=== PATIENT | female | born 1950 | race American Indian/Alaskan Native ===

== ENCOUNTER 2021-10-26 23:55 | Emergency (ER) | payer SELFPAY ==
[~2021-10-26 23:55] MED LIST: EPINEPHrine 1 MG/10 ML SYRINGE ONE; SODIUM BICARB 8.4% 50 MEQ/50 ML SYRINGE IV ONE
--- NOTE | 2021-10-27 00:15 | Emergency Department Report ---
ED CPR HPI - General Stated Complaint: CARDIAC ARREST Time Seen by Provider: 10/27/21 00:02 Source: EMS Mode of arrival: Stretcher Limitations: Altered Mental Status, Physical Limitation - History of Present Illness Initial Comments: 71-year-old female presents to the hospital cardiopulmonary arrest. Information obtained from EMS due to patient's unresponsiveness and active resuscitation efforts. They report that patient was eating, got up from the table, and collapsed at approximate 10:50 PM. They received call at 11 PM. CPR was initiated by first responders at 1109 and ACLS was at the scene at 1114. They report patient was in was apneic, cyanotic, and in PEA arrest upon their arrival. During resuscitation efforts her rhythms include asystole, V. fib with 1 shock at 200 J, then asystole again. She received a total of epinephrine x4, sodium bicarb x1, blood glucose 299, he was orally intubated with 7.0 ET tube prior to ED arrival at 23:44. ED Review of Systems ROS: Stated complaint: CARDIAC ARREST Other details as noted in HPI Comment: Unobtainable due to pts medical conditions ED Physical Exam - Other Other exam information: General: Unresponsive Head: Atraumatic Eyes: Unresponsive pupils ENT: Orally intubated 7.0 ET tube Neck: Normal appearance, no midline tenderness Chest: Apneic, equal breath sounds with bag CV: Pulseless without audible heart Abdomen: Soft, Back: Normal inspection Extremity: Cyanosis Neuro: GCS equals 3 Psych: Unresponsive Skin: Warm to touch, diffuse cyanosis ED Medical Decision Making - Medical Decision Making Resuscitation efforts continued upon patient's arrival to the ED at 23:44 patient in asystole. During resuscitation efforts she received 2 epinephrine, 1bicarb and remains in PEA with deterioration to asystole despite resuscitation with total downtime of approximately 1 hour. Time of 23:51. Patient's family member son, sister, and informed of patient's in the ED Critical Care Time: Yes Critical care time in (mins) excluding proc time.: 15 Critical care attestation.: If time is entered above; I have spent that time in minutes in the direct care of this critically ill patient, excluding procedure time. Critical Care Time: 15 Minutes of critical care time excluding procedures were used in the care of the patient. I came immediately to the bedside upon patient's arrival. I obtained history from EMS at the bedside. I discussed treatment plan with the nursing team members. I spoke with family to obtain medical history. Patient required multiple interventions and reassessments. ED Disposition Clinical Impression: Cardiopulmonary arrest Disposition: 20 Is pt being admited?: No Condition: Stable Time of Disposition: 00:48
== END 2021-10-27 06:40 ==
LOC: ED 23:55
DX: I46.9 Cardiac arrest, cause unspecified (principal)
CPT/HCPCS: 31500; 92950; 99285; J0171; J3490